=== PATIENT | female | born 1955 | race Two or more races ===

== ENCOUNTER 2019-04-27 08:51 | Observation (INO) ==
[2019-04-27 10:07] LABS: Basophils % 0.5 % (0.0-0.8); Eosinophils # 0.3 10*3/uL (0.0-0.87); Eosinophils % 3.4 % (0.00-10.9); Hematocrit 41.4 VOL% (35.7-47.0); Hemoglobin 13.3 GM/DL (12.0-16.0); Immature Granulocytes % 0.4 %; Immature Granulocytes Absolute 0.03 #; Lymphocytes # 1.7 10*3/uL (1.4-4.0); Lymphocytes % 21.8 % (21.3-54.2); Mean Corpuscular HGB Conc 32.1 GM/DL (32-36); Mean Corpuscular Volume 82.8 FL (87-102); Mean Platelet Volume 10.1 FL (9.6-12.0); Neutrophils % 67.9 % (38.7-73.9); Platelet Count 206 T/CUMM (130-400); Red Cell Distribution Width 16.5 % (9.3-17.3); White Blood Count 7.9 T/CUMM (4-12)
[2019-04-27 10:19] LABS: Apearance,Urine CLEAR (Clear); Bilirubin,Urine Negative (Negative); Glucose,Urine (UA) 3+ mg/dL (Negative); Ketones,Urine Negative (Negative); Nitrite,Urine Negative (Negative); Protein,Urine Negative; Urine Color Straw (Yellow); Urine Specific Gravity 1.015 (1.001-1.035)
[2019-04-27 10:20] LABS: Blood, Urine Large mg/dL (Negative); Urine Urobilinogen 0.2 EU/DL (0.2-1.0)
[2019-04-27 10:26] LABS: Bacteria,Urine Rare /HPF (Few); Squamous Epithelial Cell,Urine Few /HPF (0-10); WBC,Urine 0-2 /HPF (0-6)
[2019-04-27 10:27] LABS: Mucus,Urine Few /LPF (Occasional)
[2019-04-27 10:30] LABS: INR 4.6
[2019-04-27 10:32] LABS: Albumin 3.1 G/DL (3.4-5.0); Bilirubin,Total 0.7 MG/DL (0.2-1.0); Calcium 8.9 MG/DL (8.5-10.1); Osmolality,Calculated 282.2 MOS/KG (273-304); Total Protein 7.2 G/DL (6.4-8.3)
[2019-04-27 10:38] LABS: Barbiturates Screen,Urine Negative (Negative); Benzodiazepines Screen,Urine Positive (Negative); Cannabinoid Screen,Urine Positive (Negative); Opiate Screen,Urine Negative (Negative); Phencyclidine Screen,Urine Negative (Negative)
[2019-04-27] MEDS ORDERED: ONDANSETRON 4 MG/2 ML VIAL IV PRN (12:03)
[2019-04-27] MEDS ORDERED: ACETAMINOPHEN 325 MG TABLET PO PRN (12:03)
[2019-04-27] MEDS ORDERED: GLUCAGON 1 MG VIAL IM PRN (13:44)
[2019-04-27] MEDS ORDERED: DEXTROSE 10% 250 ML BAG IV PRN (13:44)
[2019-04-27] MEDS ORDERED: ALPRAZolam 0.5 MG TABLET PO PRN (14:01)
[2019-04-27] MEDS: ASPIRIN EC 81 MG TABLET PO SCH ×2 (16:10→16:44)
[2019-04-27 16:11] LABS: Hematocrit 40.5 VOL% (35.7-47.0); Hemoglobin 13.2 GM/DL (12.0-16.0)
[2019-04-27] MEDS: INSULIN REGULAR 100 UNIT/ML SUBCUT SCH ×2 (16:11→21:05)
[2019-04-27] MEDS ORDERED: ZALEPLON 5 MG CAPSULE PO SCH (21:00)
[2019-04-27] MEDS ORDERED: amLODIPine 10 MG TABLET PO SCH (21:00)
[2019-04-27] MEDS ORDERED: INSULIN GLARGINE 100 UNIT/ML SUBCUT SCH (21:00)
[2019-04-27] MEDS ORDERED: ATORVASTATIN 40 MG TABLET PO SCH (21:00)
[2019-04-27] MEDS: FLECAINIDE 100 MG TABLET PO SCH (21:04)
[2019-04-27] MEDS: METOPROLOL TARTRATE 50 MG TABLET PO SCH (21:04)
[2019-04-27] MEDS: TICAGRELOR 90 MG TABLET PO SCH (21:04)
[2019-04-27 21:47] LABS: Hematocrit 37.5 VOL% (35.7-47.0); Hemoglobin 12.6 GM/DL (12.0-16.0)
[2019-04-28 05:26] LABS: Basophils % 0.4 % (0.0-0.8); Eosinophils # 0.3 10*3/uL (0.0-0.87); Eosinophils % 3.9 % (0.00-10.9); Hematocrit 39.5 VOL% (35.7-47.0); Hemoglobin 13.2 GM/DL (12.0-16.0); Immature Granulocytes % 0.3 %; Immature Granulocytes Absolute 0.02 #; Lymphocytes # 2.5 10*3/uL (1.4-4.0); Mean Corpuscular HGB Conc 33.4 GM/DL (32-36); Mean Corpuscular Volume 81.1 FL (87-102); Mean Platelet Volume 10.9 FL (9.6-12.0); Monocytes % 5.9 % (1.7-12.7); Neutrophils % 56.5 % (38.7-73.9); Platelet Count 218 T/CUMM (130-400); Red Blood Count 4.87 MC/CUMM (3.8-5.5); Red Cell Distribution Width 16.6 % (9.3-17.3); White Blood Count 7.7 T/CUMM (4-12)
[2019-04-28 05:27] LABS: Hemoglobin 13.3 GM/DL (12.0-16.0)
[2019-04-28 05:39] LABS: INR 2.4
[2019-04-28 05:50] LABS: Calcium 9.2 MG/DL (8.5-10.1); Osmolality,Calculated 278.7 MOS/KG (273-304)
[2019-04-28 06:08] LABS: PT Patient Result 25.7 SECS (9.6-12.2)
[2019-04-28 08:50] VITALS: BP 143/74
[2019-04-28] MEDS ORDERED: sitaGLIPtin 100 MG TABLET PO SCH (09:00)
[2019-04-28] MEDS ORDERED: hydroCHLOROthiazide 12.5 MG CAPSULE PO PRN (09:00)
[2019-04-28] MEDS ORDERED: PANTOPRAZOLE 40 MG TABLET PO SCH (09:00)
[2019-04-28] MEDS: TICAGRELOR 90 MG TABLET PO SCH (09:54)
[2019-04-28] MEDS: FLECAINIDE 100 MG TABLET PO SCH (09:54)
[2019-04-28] MEDS: INSULIN REGULAR 100 UNIT/ML SUBCUT SCH (09:54)
[2019-04-28] MEDS: METOPROLOL TARTRATE 50 MG TABLET PO SCH (09:54)
[2019-04-28] MEDS ORDERED: WARFARIN 2.5 MG TABLET PO SCH (18:00)
== END 2019-04-28 11:15 | disposition home or self-care (01) ==
LOC: N.ED 08:51 → N.EDINP 08:51 → SUATTDRO 12:03 → N.EDINP 13:40 → N.2E 13:45
PROVIDERS: ADMIT Internal Medicine; ATTEND Internal Medicine Cardiovascular Disease

== ENCOUNTER 2020-04-23 20:23 | Inpatient (IN) ==
[2020-04-23] MEDS ORDERED: ALUM/MAG/SIMETH/LIDO VISC 1:1 30 ML BOTTLE PO STA (20:46)
[2020-04-23] MEDS ORDERED: ONDANSETRON 4 MG/2 ML VIAL IV STA (20:46)
[2020-04-23] MEDS ORDERED: HYDROmorphone 2 MG/1 ML VIAL IV STA (20:46)
[2020-04-23] MEDS ORDERED: PANTOPRAZOLE 40 MG VIAL IV STA (20:46)
[2020-04-23 21:05] LABS: Basophils % 0.4 % (0.0-0.8); Eosinophils # 0.1 10*3/uL (0.0-0.87); Hematocrit 48.8 VOL% (35.7-47.0); Immature Granulocytes % 0.4 %; Immature Granulocytes Absolute 0.03 #; Lymphocytes % 24.8 % (21.3-54.2); Mean Corpuscular HGB Conc 32.8 GM/DL (32-36); Mean Corpuscular Volume 81.9 FL (87-102); Mean Platelet Volume 10.3 FL (9.6-12.0); Monocytes % 6.1 % (1.7-12.7); Neutrophils % 67.3 % (38.7-73.9); Platelet Count 231 T/CUMM (130-400); Red Blood Count 5.96 MC/CUMM (3.8-5.5); Red Cell Distribution Width 17.6 % (9.3-17.3); White Blood Count 8.1 T/CUMM (4-12)
[2020-04-23 21:23] LABS: Bilirubin,Urine Negative (Negative); Blood, Urine Moderate mg/dL (Negative); Glucose,Urine (UA) >=500 mg/dL (Negative); Ketones,Urine Negative (Negative); Nitrite,Urine Negative (Negative); Protein,Urine Negative; RBC,Urine 13 /HPF (0-4); Squamous Epithelial Cell,Urine Occasional /HPF (0-10); Urine Appearance CLEAR (Clear); Urine Color Straw (Yellow); Urine Specific Gravity 1.027 (1.001-1.035); Urine Urobilinogen < 2.0 EU/DL (0.2-1.0); WBC,Urine 2 /HPF (0-6)
[2020-04-23] MEDS ORDERED: SODIUM CHLORIDE 0.9% 1,000 ML IV STA (21:28)
[2020-04-23 21:34] LABS: Alanine Aminotransferase 15 U/L (13-56); Albumin 3.1 G/DL (3.4-5.0); Alkaline Phosphatase 154 U/L (45-117); Amylase 57 U/L (25-115); Aspartate Amino Transferase 10 U/L (0-37); Blood Urea Nitrogen 7 MG/DL (7-18); Calcium 8.9 MG/DL (8.5-10.1); Carbon Dioxide 24 MMOL/L (21-32); Estimated Glom Filtration Rate 63 ML/MIN; Glucose 494 MG/DL (74-106); Osmolality,Calculated 285.4 MOS/KG (273-304); Sodium 133 MMOL/L (136-145); Total Protein 7.6 G/DL (6.4-8.3)
[2020-04-23] MEDS ORDERED: INSULIN REGULAR 100 UNIT/ML SUBCUT STA (21:42)
[2020-04-23] MEDS ORDERED: DEXTROSE 50% 25 GM/50 ML VIAL IV PRN ×2 (22:28→22:29)
[2020-04-23] MEDS ORDERED: GLUCAGON 1 MG VIAL IM PRN ×2 (22:28→22:29)
[2020-04-24] MEDS: SODIUM CHLORIDE 0.9% 1,000 ML IV SCH ×3 (01:30→18:26)
[2020-04-24] MEDS: INSULIN GLARGINE 100 UNIT/ML SUBCUT SCH ×2 (01:31→23:30)
[2020-04-24] MEDS: INSULIN REGULAR 100 UNIT/ML SUBCUT SCH ×4 (01:31→18:25)
[2020-04-24 03:17] LABS: Basophils % 0.1 % (0.0-0.8); Eosinophils # 0.1 10*3/uL (0.0-0.87); Eosinophils % 1.7 % (0.00-10.9); Hematocrit 44.1 VOL% (35.7-47.0); Hemoglobin 14.4 GM/DL (12.0-16.0); Immature Granulocytes % 0.3 %; Immature Granulocytes Absolute 0.02 #; Lymphocytes # 2.3 10*3/uL (1.4-4.0); Lymphocytes % 33.2 % (21.3-54.2); Mean Corpuscular HGB Conc 32.7 GM/DL (32-36); Monocytes % 6.3 % (1.7-12.7); Neutrophils % 58.4 % (38.7-73.9); Platelet Count 195 T/CUMM (130-400); Red Blood Count 5.38 MC/CUMM (3.8-5.5); Red Cell Distribution Width 16.7 % (9.3-17.3)
[2020-04-24 03:41] LABS: Calcium 8.4 MG/DL (8.5-10.1); Osmolality,Calculated 274.2 MOS/KG (273-304); Potassium 3.3 MMOL/L (3.5-5.1)
[2020-04-24 03:47] LABS: PT Patient Result 62.9 SECS (9.8-11.9)
[2020-04-24 03:57] LABS: INR 6.5
[2020-04-24] MEDS: HYDROmorphone 2 MG/1 ML VIAL IV PRN (05:48)
[2020-04-24] MEDS: ONDANSETRON 4 MG/2 ML VIAL IV PRN ×2 (05:49→11:21)
[2020-04-24] MEDS: METOPROLOL TARTRATE 50 MG TABLET PO SCH ×2 (08:47→22:46)
[2020-04-24] MEDS: NICOTINE 14 MG/24 HR PATCH TRANSDERM SCH (08:47)
[2020-04-24] MEDS: TICAGRELOR 90 MG TABLET PO SCH ×2 (08:47→22:44)
[2020-04-24] MEDS: FLECAINIDE 100 MG TABLET PO SCH ×2 (08:47→22:45)
[2020-04-24] MEDS ORDERED: PANTOPRAZOLE 40 MG VIAL IV SCH (09:00)
[2020-04-24] MEDS ORDERED: POTASSIUM CHLORIDE RIDER 10 MEQ in PREMIX 1 EACH IV PRN (09:43)
[2020-04-24] MEDS: POTASSIUM CHLORIDE 20 MEQ TABLET PO PRN ×2 (10:01→12:57)
[2020-04-24 10:27] LABS: Troponin I < 0.015 NG/ML (0.00-0.045)
[2020-04-24 10:28] LABS: Risk Ratio 2.79
[2020-04-24] MEDS: NYSTATIN CREAM 15 GM TUBE TOP SCH ×2 (16:05→22:00)
[2020-04-24] MEDS: FLUCONAZOLE 100 MG TABLET PO SCH (16:05)
[2020-04-24 16:24] LABS: INR 5.8; PT Patient Result 56.6 SECS (9.8-11.9)
[2020-04-24] MEDS ORDERED: WARFARIN 2.5 MG TABLET PO SCH (18:00)
[2020-04-24] MEDS: PANTOPRAZOLE 40 MG VIAL IV SCH (23:32)
[2020-04-25] MEDS: INSULIN REGULAR 100 UNIT/ML SUBCUT SCH ×4 (00:21→18:23)
[2020-04-25] MEDS: HYDROmorphone 2 MG/1 ML VIAL IV PRN (01:28)
[2020-04-25] MEDS: SODIUM CHLORIDE 0.9% 1,000 ML IV SCH ×3 (03:31→18:51)
[2020-04-25] MEDS: ONDANSETRON 4 MG/2 ML VIAL IV PRN (03:40)
[2020-04-25 05:51] LABS: Basophils % 0.3 % (0.0-0.8); Eosinophils # 0.2 10*3/uL (0.0-0.87); Eosinophils % 2.9 % (0.00-10.9); Hematocrit 41.7 VOL% (35.7-47.0); Hemoglobin 14.1 GM/DL (12.0-16.0); Immature Granulocytes % 0.1 %; Immature Granulocytes Absolute 0.01 #; Lymphocytes # 2.4 10*3/uL (1.4-4.0); Lymphocytes % 34.7 % (21.3-54.2); Mean Corpuscular HGB Conc 33.8 GM/DL (32-36); Mean Corpuscular Volume 80.3 FL (87-102); Mean Platelet Volume 10.9 FL (9.6-12.0); Monocytes % 7.3 % (1.7-12.7); Neutrophils % 54.7 % (38.7-73.9); Platelet Count 216 T/CUMM (130-400); Red Blood Count 5.19 MC/CUMM (3.8-5.5)
[2020-04-25 06:07] LABS: PT Patient Result 55.6 SECS (9.8-11.9)
[2020-04-25 06:10] LABS: Albumin 2.7 G/DL (3.4-5.0); Bilirubin,Total 1.7 MG/DL (0.2-1.0); Calcium 8.7 MG/DL (8.5-10.1); Osmolality,Calculated 277.1 MOS/KG (273-304); Potassium 3.7 MMOL/L (3.5-5.1); Total Protein 6.5 G/DL (6.4-8.9)
[2020-04-25 06:19] LABS: INR 5.7
[2020-04-25] MEDS: PANTOPRAZOLE 40 MG VIAL IV SCH ×2 (08:48→21:33)
[2020-04-25] MEDS: NICOTINE 14 MG/24 HR PATCH TRANSDERM SCH (10:14)
[2020-04-25] MEDS: METOPROLOL TARTRATE 50 MG TABLET PO SCH ×2 (10:14→21:28)
[2020-04-25] MEDS: FLUCONAZOLE 100 MG TABLET PO SCH (10:14)
[2020-04-25] MEDS: NYSTATIN CREAM 15 GM TUBE TOP SCH ×3 (10:14→21:30)
[2020-04-25] MEDS: TICAGRELOR 90 MG TABLET PO SCH ×2 (10:14→21:30)
[2020-04-25] MEDS: FLECAINIDE 100 MG TABLET PO SCH ×2 (10:15→22:33)
[2020-04-25] MEDS: INSULIN GLARGINE 100 UNIT/ML SUBCUT SCH (21:31)
[2020-04-26] MEDS: SODIUM CHLORIDE 0.9% 1,000 ML IV SCH ×3 (00:15→16:06)
[2020-04-26] MEDS: HYDROmorphone 2 MG/1 ML VIAL IV PRN (00:36)
[2020-04-26] MEDS: ONDANSETRON 4 MG/2 ML VIAL IV PRN (00:51)
[2020-04-26] MEDS: INSULIN REGULAR 100 UNIT/ML SUBCUT SCH ×5 (00:59→17:41)
[2020-04-26 06:10] LABS: Calcium 8.5 MG/DL (8.5-10.1); Osmolality,Calculated 274.4 MOS/KG (273-304)
[2020-04-26 06:14] LABS: Albumin 2.7 G/DL (3.4-5.0); Bilirubin,Direct 0.3 MG/DL (0.0-0.20); Bilirubin,Indirect 1.4 MG/DL (0.0-1.0); Bilirubin,Total 1.7 MG/DL (0.2-1.0); Total Protein 6.2 G/DL (5.0-7.5)
[2020-04-26 06:19] LABS: INR 3.9; PT Patient Result 38.8 SECS (9.8-11.9)
[2020-04-26] MEDS ORDERED: ESMOLOL 100 MG/10 ML VIAL IV ONE (09:03)
[2020-04-26] MEDS ORDERED: PHENYLEPHRINE 1 MG/10 ML SYRINGE IV ONE (09:09)
[2020-04-26] MEDS: FLECAINIDE 100 MG TABLET PO SCH ×2 (10:16→21:34)
[2020-04-26] MEDS: FLUCONAZOLE 100 MG TABLET PO SCH (10:16)
[2020-04-26] MEDS: PANTOPRAZOLE 40 MG VIAL IV SCH ×2 (10:17→21:38)
[2020-04-26] MEDS: NICOTINE 14 MG/24 HR PATCH TRANSDERM SCH (10:17)
[2020-04-26] MEDS: METOPROLOL TARTRATE 50 MG TABLET PO SCH ×2 (10:17→21:34)
[2020-04-26] MEDS: NYSTATIN CREAM 15 GM TUBE TOP SCH ×3 (10:17→22:00)
[2020-04-26] MEDS: TICAGRELOR 90 MG TABLET PO SCH ×2 (10:17→21:35)
[2020-04-26] MEDS ORDERED: ALUM/MAG/SIMETH/LIDO VISC 1:1 30 ML BOTTLE PO ONE (14:34)
[2020-04-26] MEDS ORDERED: ALUMINUM/MAGNES/SIMETH MAX STR 30 ML UDCUP PO PRN (14:34)
[2020-04-26] MEDS: INSULIN GLARGINE 100 UNIT/ML SUBCUT SCH (21:35)
[2020-04-26] MEDS ORDERED: KETOROLAC 15 MG/1 ML VIAL IV PRN (23:30)
[2020-04-27] MEDS: MOMETASONE 50 MCG NASAL SPRAY 17 GM BOTTLE BOTH NARES SCH ×3 (00:36→21:20)
[2020-04-27] MEDS: INSULIN REGULAR 100 UNIT/ML SUBCUT SCH ×4 (01:27→18:01)
[2020-04-27] MEDS: SODIUM CHLORIDE 0.9% 1,000 ML IV SCH ×2 (06:00→09:40)
[2020-04-27 08:17] LABS: INR 1.8; PT Patient Result 18.8 SECS (9.8-11.9)
[2020-04-27] MEDS: TICAGRELOR 90 MG TABLET PO SCH ×2 (09:37→20:50)
[2020-04-27] MEDS: METOPROLOL TARTRATE 50 MG TABLET PO SCH ×2 (09:37→20:50)
[2020-04-27] MEDS: FLECAINIDE 100 MG TABLET PO SCH ×2 (09:37→20:50)
[2020-04-27] MEDS: FLUCONAZOLE 100 MG TABLET PO SCH (09:37)
[2020-04-27] MEDS: PANTOPRAZOLE 40 MG VIAL IV SCH ×2 (09:38→20:52)
[2020-04-27] MEDS: NYSTATIN CREAM 15 GM TUBE TOP SCH ×3 (09:39→21:20)
[2020-04-27] MEDS: NICOTINE 14 MG/24 HR PATCH TRANSDERM SCH (09:40)
[2020-04-27] MEDS: ONDANSETRON 4 MG/2 ML VIAL IV PRN (10:05)
[2020-04-27] MEDS: CETIRIZINE 10 MG TABLET PO SCH (10:05)
[2020-04-27] MEDS ORDERED: WARFARIN 2.5 MG TABLET PO SCH (18:00)
[2020-04-27] MEDS: INSULIN GLARGINE 100 UNIT/ML SUBCUT SCH (20:51)
[2020-04-28] MEDS: INSULIN REGULAR 100 UNIT/ML SUBCUT SCH ×3 (01:43→12:37)
[2020-04-28 05:54] LABS: Basophils % 0.4 % (0.0-0.8); Eosinophils # 0.3 10*3/uL (0.0-0.87); Eosinophils % 4.8 % (0.00-10.9); Hematocrit 39.2 VOL% (35.7-47.0); Hemoglobin 13.4 GM/DL (12.0-16.0); Immature Granulocytes % 0.4 %; Immature Granulocytes Absolute 0.02 #; Lymphocytes # 2.1 10*3/uL (1.4-4.0); Lymphocytes % 38.1 % (21.3-54.2); Mean Corpuscular HGB Conc 34.2 GM/DL (32-36); Mean Corpuscular Volume 80.3 FL (87-102); Mean Platelet Volume 10.6 FL (9.6-12.0); Neutrophils % 47.3 % (38.7-73.9); Platelet Count 186 T/CUMM (130-400); Red Blood Count 4.88 MC/CUMM (3.8-5.5); Red Cell Distribution Width 17.2 % (9.3-17.3); White Blood Count 5.5 T/CUMM (4-12)
[2020-04-28 06:04] LABS: INR 1.2; PT Patient Result 13.1 SECS (9.8-11.9)
[2020-04-28 07:10] LABS: Calcium 8.3 MG/DL (8.5-10.1); Osmolality,Calculated 285.4 MOS/KG (273-304); Potassium 3.5 MMOL/L (3.5-5.1)
[2020-04-28] MEDS: FLUCONAZOLE 100 MG TABLET PO SCH (08:23)
[2020-04-28] MEDS: METOPROLOL TARTRATE 50 MG TABLET PO SCH (08:23)
[2020-04-28] MEDS: TICAGRELOR 90 MG TABLET PO SCH (08:23)
[2020-04-28] MEDS: CETIRIZINE 10 MG TABLET PO SCH (08:23)
[2020-04-28] MEDS: MOMETASONE 50 MCG NASAL SPRAY 17 GM BOTTLE BOTH NARES SCH (08:24)
[2020-04-28] MEDS: NYSTATIN CREAM 15 GM TUBE TOP SCH (08:24)
[2020-04-28] MEDS: FLECAINIDE 100 MG TABLET PO SCH (08:24)
[2020-04-28] MEDS: PANTOPRAZOLE 40 MG VIAL IV SCH (08:24)
[2020-04-28 12:11] VITALS: BP 132/90
== END 2020-04-28 13:51 | disposition home or self-care (01) | DRG 438 ==
LOC: N.ED 20:23 → SUATTDRO 22:24 → N.EDINP 22:24 → N.TELEN 23:47 → N.EDINP 23:47
PROVIDERS: ADMIT Internal Medicine; ATTEND Phlebology

== ENCOUNTER 2021-06-21 22:02 | Observation (INO) ==
[2021-06-21] MEDS ORDERED: ALUMINUM/MAGNES/SIMETH MAX STR 30 ML UDCUP PO STA (22:27)
[2021-06-21] MEDS ORDERED: ACETAMINOPHEN 500 MG TABLET PO STA (22:27)
[2021-06-21 22:54] LABS: Basophils % 0.4 % (0.0-0.8); Eosinophils # 0.3 10*3/uL (0.0-0.87); Eosinophils % 3.5 % (0.00-10.9); Hemoglobin 14.1 GM/DL (12.0-16.0); Immature Granulocytes % 0.4 %; Immature Granulocytes Absolute 0.03 #; Lymphocytes # 2.7 10*3/uL (1.4-4.0); Lymphocytes % 34.1 % (21.3-54.2); Mean Corpuscular HGB Conc 32.8 GM/DL (32-36); Mean Corpuscular Volume 82.4 FL (87-102); Monocytes # 0.4 10*3/uL (0.11-0.8); Monocytes % 5.5 % (1.7-12.7); Neutrophils % 56.1 % (38.7-73.9); Platelet Count 231 T/CUMM (130-400); Red Blood Count 5.22 MC/CUMM (3.8-5.5); Red Cell Distribution Width 15.9 % (9.3-17.3); White Blood Count 7.8 T/CUMM (4-12)
[2021-06-21 23:01] LABS: Granular Casts,Urine 11 /LPF (0-1); Hyaline Casts,Urine 168 /LPF (0-3); Mucus,Urine Occasional /LPF (Occasional); RBC,Urine 7 /HPF (0-4); Squamous Epithelial Cell,Urine Many /HPF (0-10)
[2021-06-21 23:02] LABS: Glucose,Urine (UA) 100 mg/dL (Negative); Protein,Urine 30 mg/dL (Negative); Urine Appearance Clear (Clear); Urine Color Yellow (Yellow); Urine Specific Gravity >= 1.030 (1.001-1.035); Urine pH 5.5 (4.5-8.0)
[2021-06-21 23:03] LABS: Bilirubin,Urine Small mg/dL (Negative); Blood, Urine Small mg/dL (Negative); Ketones,Urine 15 mg/dL (Negative); Nitrite,Urine Negative (Negative)
[2021-06-21 23:33] LABS: Bilirubin,Total 0.7 MG/DL (0.20-1.00); Calcium 9.1 MG/DL (8.5-10.1); Potassium 3.6 MMOL/L (3.5-5.1); Total Protein 6.8 G/DL (6.4-8.2)
[2021-06-21] MEDS ORDERED: SODIUM CHLORIDE 0.9% 500 ML IV STA (23:48)
[2021-06-22] MEDS ORDERED: MORPHINE 2 MG/1 ML SYRINGE IV STA (00:02)
[2021-06-22] MEDS ORDERED: DEXTROSE 10% 250 ML BAG IV PRN (01:44)
[2021-06-22] MEDS ORDERED: ACETAMINOPHEN 325 MG TABLET PO PRN (01:44)
[2021-06-22] MEDS ORDERED: hydrALAZINE 20 MG/1 ML VIAL IV PRN (01:44)
[2021-06-22] MEDS ORDERED: GLUCAGON 1 MG VIAL IM PRN (01:44)
[2021-06-22] MEDS: MORPHINE 2 MG/1 ML SYRINGE IV PRN ×4 (03:50→19:14)
[2021-06-22] MEDS: SODIUM CHLORIDE 0.9% 1,000 ML IV SCH ×4 (03:50→22:50)
[2021-06-22] MEDS: ONDANSETRON 4 MG/2 ML VIAL IV PRN ×4 (03:53→19:13)
[2021-06-22 04:41] LABS: Albumin 2.7 G/DL (3.4-5.0); Bilirubin,Total 0.6 MG/DL (0.20-1.00); Calcium 8.7 MG/DL (8.5-10.1); Osmolality,Calculated 292.3 MOS/KG (273-304); Potassium 3.3 MMOL/L (3.5-5.1); Risk Ratio 3.33; Total Protein 6.5 G/DL (6.4-8.2); VLDL Cholesterol 20.8 MG/DL
[2021-06-22] MEDS: INSULIN LISPRO 100 UNIT/ML SUBCUT SCH ×3 (05:24→17:36)
[2021-06-22] MEDS: PANTOPRAZOLE 40 MG VIAL IV SCH (08:19)
[2021-06-22] MEDS ORDERED: POTASSIUM CHLORIDE 20 MEQ TABLET PO ONE (15:00)
[2021-06-22] MEDS ORDERED: POTASSIUM CHLORIDE 20 MEQ TABLET PO PRN (15:30)
[2021-06-22] MEDS: METOPROLOL TARTRATE 25 MG TABLET PO SCH (20:54)
[2021-06-22] MEDS ORDERED: ENOXAPARIN 40 MG/0.4 ML SYRINGE SUBCUT SCH (21:00)
[2021-06-22] MEDS: diphenhydrAMINE CAP 25 MG CAPSULE PO PRN (23:25)
[2021-06-23] MEDS: INSULIN LISPRO 100 UNIT/ML SUBCUT SCH ×4 (00:24→19:33)
[2021-06-23] MEDS: ONDANSETRON 4 MG/2 ML VIAL IV PRN ×2 (03:42→12:00)
[2021-06-23] MEDS: SODIUM CHLORIDE 0.9% 1,000 ML IV SCH ×3 (05:52→19:45)
[2021-06-23 06:10] LABS: Basophils % 0.6 % (0.0-0.8); Eosinophils # 0.2 10*3/uL (0.0-0.87); Hematocrit 39.7 VOL% (35.7-47.0); Hemoglobin 12.9 GM/DL (12.0-16.0); Immature Granulocytes % 0.2 %; Immature Granulocytes Absolute 0.01 #; Lymphocytes # 2.2 10*3/uL (1.4-4.0); Lymphocytes % 32.7 % (21.3-54.2); Mean Corpuscular HGB Conc 32.5 GM/DL (32-36); Mean Corpuscular Volume 83.1 FL (87-102); Mean Platelet Volume 10.1 FL (9.6-12.0); Monocytes # 0.4 10*3/uL (0.11-0.8); Monocytes % 6.5 % (1.7-12.7); Platelet Count 189 T/CUMM (130-400); Red Blood Count 4.78 MC/CUMM (3.8-5.5); Red Cell Distribution Width 15.8 % (9.3-17.3); White Blood Count 6.6 T/CUMM (4-12)
[2021-06-23 06:24] LABS: Calcium 8.6 MG/DL (8.5-10.1); Osmolality,Calculated 281.4 MOS/KG (273-304); Potassium 3.8 MMOL/L (3.5-5.1)
[2021-06-23] MEDS: METOPROLOL TARTRATE 25 MG TABLET PO SCH ×2 (08:31→20:49)
[2021-06-23] MEDS: ESCITALOPRAM 10 MG TABLET PO SCH (08:31)
[2021-06-23] MEDS: amLODIPine 10 MG TABLET PO SCH (08:31)
[2021-06-23] MEDS: PANTOPRAZOLE 40 MG VIAL IV SCH (08:33)
[2021-06-23] MEDS: diphenhydrAMINE CAP 25 MG CAPSULE PO PRN ×2 (11:58→19:31)
[2021-06-23] MEDS: DOCUSATE SODIUM 100 MG CAPSULE PO SCH ×2 (12:00→20:50)
[2021-06-23] MEDS: PANTOPRAZOLE 40 MG TABLET PO SCH (19:46)
[2021-06-24] MEDS: INSULIN LISPRO 100 UNIT/ML SUBCUT SCH ×6 (00:34→23:51)
[2021-06-24] MEDS: SODIUM CHLORIDE 0.9% 1,000 ML IV SCH ×2 (02:22→21:25)
[2021-06-24] MEDS: diphenhydrAMINE CAP 25 MG CAPSULE PO PRN ×3 (02:23→23:53)
[2021-06-24] MEDS: ONDANSETRON 4 MG/2 ML VIAL IV PRN ×2 (02:25→07:29)
[2021-06-24 05:11] LABS: Basophils % 0.5 % (0.0-0.8); Eosinophils # 0.2 10*3/uL (0.0-0.87); Eosinophils % 3.3 % (0.00-10.9); Hematocrit 39.7 VOL% (35.7-47.0); Hemoglobin 12.9 GM/DL (12.0-16.0); Immature Granulocytes % 0.5 %; Immature Granulocytes Absolute 0.03 #; Lymphocytes % 33.1 % (21.3-54.2); Mean Corpuscular HGB Conc 32.5 GM/DL (32-36); Mean Corpuscular Volume 83.2 FL (87-102); Mean Platelet Volume 10.7 FL (9.6-12.0); Monocytes # 0.4 10*3/uL (0.11-0.8); Monocytes % 6.4 % (1.7-12.7); Neutrophils % 56.2 % (38.7-73.9); Platelet Count 195 T/CUMM (130-400); Red Blood Count 4.77 MC/CUMM (3.8-5.5); Red Cell Distribution Width 15.7 % (9.3-17.3); White Blood Count 6.1 T/CUMM (4-12)
[2021-06-24 05:31] LABS: Calcium 8.6 MG/DL (8.5-10.1); Osmolality,Calculated 276.7 MOS/KG (273-304); Potassium 3.7 MMOL/L (3.5-5.1)
[2021-06-24 05:35] LABS: Albumin 2.6 G/DL (3.4-5.0); Bilirubin,Direct 0.2 MG/DL (0.0-0.20); Bilirubin,Total 1.2 MG/DL (0.20-1.00); Total Protein 5.9 G/DL (6.4-8.2)
[2021-06-24] MEDS: PANTOPRAZOLE 40 MG TABLET PO SCH ×2 (07:52→18:29)
[2021-06-24] MEDS ORDERED: MAGNESIUM SULF RIDER 2 GM/50 ML PREMIX IV ONE (08:00)
[2021-06-24] MEDS: amLODIPine 10 MG TABLET PO SCH (08:38)
[2021-06-24] MEDS: DOCUSATE SODIUM 100 MG CAPSULE PO SCH ×2 (08:38→21:27)
[2021-06-24] MEDS: ESCITALOPRAM 10 MG TABLET PO SCH (08:39)
[2021-06-24] MEDS: METOPROLOL TARTRATE 25 MG TABLET PO SCH ×2 (08:39→21:27)
[2021-06-24] MEDS ORDERED: ONDANSETRON 4 MG/2 ML VIAL IV SCH (10:00)
[2021-06-24] MEDS ORDERED: traMADol 50 MG TABLET PO PRN (21:03)
[2021-06-25] MEDS: SODIUM CHLORIDE 0.9% 1,000 ML IV SCH ×3 (02:51→11:07)
[2021-06-25 05:51] LABS: Basophils % 0.5 % (0.0-0.8); Eosinophils # 0.2 10*3/uL (0.0-0.87); Eosinophils % 3.3 % (0.00-10.9); Hematocrit 40.7 VOL% (35.7-47.0); Hemoglobin 13.1 GM/DL (12.0-16.0); Immature Granulocytes % 0.3 %; Immature Granulocytes Absolute 0.02 #; Lymphocytes # 2.1 10*3/uL (1.4-4.0); Lymphocytes % 34.3 % (21.3-54.2); Mean Corpuscular HGB Conc 32.2 GM/DL (32-36); Mean Corpuscular Volume 82.6 FL (87-102); Mean Platelet Volume 10.5 FL (9.6-12.0); Monocytes # 0.5 10*3/uL (0.11-0.8); Monocytes % 7.8 % (1.7-12.7); Neutrophils % 53.8 % (38.7-73.9); Platelet Count 226 T/CUMM (130-400); Red Blood Count 4.93 MC/CUMM (3.8-5.5); Red Cell Distribution Width 15.9 % (9.3-17.3); White Blood Count 6.1 T/CUMM (4-12)
[2021-06-25 05:59] LABS: Calcium 8.9 MG/DL (8.5-10.1); Osmolality,Calculated 275.5 MOS/KG (273-304); Potassium 3.7 MMOL/L (3.5-5.1)
[2021-06-25] MEDS: INSULIN LISPRO 100 UNIT/ML SUBCUT SCH ×2 (06:30→11:10)
[2021-06-25] MEDS ORDERED: propofoL 200 MG/20 ML VIAL IV ONE (08:45)
[2021-06-25] MEDS ORDERED: LIDOCAINE 2% 5 ML VIAL ONE (08:45)
[2021-06-25] MEDS ORDERED: ONDANSETRON 4 MG/2 ML VIAL ONE (08:48)
[2021-06-25] MEDS ORDERED: ESMOLOL 100 MG/10 ML VIAL IV ONE (08:59)
[2021-06-25] MEDS ORDERED: PHENYLEPHRINE 1 MG/10 ML SYRINGE IV ONE (09:00)
[2021-06-25] MEDS ORDERED: METOCLOPRAMIDE 10 MG/2 ML VIAL IV SCH (09:30)
[2021-06-25] MEDS: DOCUSATE SODIUM 100 MG CAPSULE PO SCH (10:33)
[2021-06-25] MEDS: amLODIPine 10 MG TABLET PO SCH (10:33)
[2021-06-25] MEDS: ESCITALOPRAM 10 MG TABLET PO SCH (10:33)
[2021-06-25] MEDS: METOPROLOL TARTRATE 25 MG TABLET PO SCH (10:33)
[2021-06-25] MEDS: PANTOPRAZOLE 40 MG TABLET PO SCH (10:33)
[2021-06-25] MEDS ORDERED: METOCLOPRAMIDE 10 MG/10 ML UDCUP PO SCH (10:53)
[2021-06-25] MEDS ORDERED: PHENOL 1.4% THROAT SPRAY 177 ML BOTTLE PO PRN (13:53)
[2021-06-25 16:16] VITALS: BP 123/60
[2021-06-29] MEDS ORDERED: ERGOCALCIFEROL 50,000 UNIT CAPSULE PO SCH (09:00)
== END 2021-06-25 18:38 | disposition home or self-care (01) ==
LOC: N.ED 22:02 → INTOOBSV 06-22 01:44 → SUATTDRO 06-22 01:44 → N.EDINP 06-22 01:44 → N.3E 06-22 02:37
PROVIDERS: ADMIT Family Medicine; ATTEND Emergency Medicine

== ENCOUNTER 2021-10-28 17:43 | Observation (INO) ==
[2021-10-28] MEDS ORDERED: DILTIAZEM 25 MG/5 ML VIAL IV STA (18:10)
[2021-10-28 18:27] LABS: Basophils % 0.3 % (0.0-0.8); Eosinophils # 0.1 10*3/uL (0.0-0.87); Eosinophils % 1.8 % (0.00-10.9); Hemoglobin 14.3 GM/DL (12.0-16.0); Immature Granulocytes % 0.4 %; Immature Granulocytes Absolute 0.03 #; Lymphocytes # 2.2 10*3/uL (1.4-4.0); Lymphocytes % 31.1 % (21.3-54.2); Mean Corpuscular HGB Conc 33.3 GM/DL (32-36); Mean Corpuscular Volume 83.3 FL (87-102); Mean Platelet Volume 10.7 FL (9.6-12.0); Monocytes # 0.4 10*3/uL (0.11-0.8); Monocytes % 5.2 % (1.7-12.7); Neutrophils % 61.2 % (38.7-73.9); Platelet Count 222 T/CUMM (130-400); Red Blood Count 5.16 MC/CUMM (3.8-5.5); Red Cell Distribution Width 15.7 % (9.3-17.3); White Blood Count 7.1 T/CUMM (4-12)
[2021-10-28 18:39] LABS: INR 1.2; PT Patient Result 12.8 SECS (10.1-12.1)
[2021-10-28 18:47] LABS: Albumin 2.9 G/DL (3.4-5.0); Bilirubin,Total 0.9 MG/DL (0.20-1.00); Calcium 9.3 MG/DL (8.5-10.1); Osmolality,Calculated 284.1 MOS/KG (273-304); Potassium 4.5 MMOL/L (3.5-5.1)
[2021-10-28] MEDS ORDERED: ACETAMINOPHEN 325 MG TABLET PO PRN (19:39)
[2021-10-28] MEDS ORDERED: DEXTROSE 10% 250 ML BAG IV PRN ×2 (19:39→19:49)
[2021-10-28] MEDS ORDERED: ONDANSETRON 4 MG/2 ML VIAL IV PRN (19:39)
[2021-10-28] MEDS ORDERED: GLUCAGON 1 MG VIAL IM PRN ×2 (19:39→19:49)
[2021-10-28] MEDS ORDERED: LACTATED RINGERS 1,000 ML IV SCH ×2 (20:00)
[2021-10-28] MEDS ORDERED: METOPROLOL TARTRATE 25 MG TABLET PO SCH (21:00)
[2021-10-28] MEDS ORDERED: INSULIN GLARGINE 100 UNIT/ML SUBCUT SCH (21:00)
[2021-10-28] MEDS ORDERED: ATORVASTATIN 40 MG TABLET PO SCH (21:00)
[2021-10-28] MEDS: INSULIN REGULAR 100 UNIT/ML SUBCUT SCH (21:36)
[2021-10-28] MEDS: INSULIN LISPRO 100 UNIT/ML SUBCUT SCH (21:49)
[2021-10-28] MEDS: FLECAINIDE 100 MG TABLET PO SCH (23:42)
[2021-10-29 01:06] LABS: Basophils % 0.5 % (0.0-0.8); Eosinophils # 0.2 10*3/uL (0.0-0.87); Hematocrit 39.7 VOL% (35.7-47.0); Hemoglobin 13.2 GM/DL (12.0-16.0); Immature Granulocytes % 0.4 %; Immature Granulocytes Absolute 0.03 #; Lymphocytes # 2.8 10*3/uL (1.4-4.0); Lymphocytes % 37.7 % (21.3-54.2); Mean Corpuscular HGB Conc 33.2 GM/DL (32-36); Mean Corpuscular Volume 83.8 FL (87-102); Mean Platelet Volume 10.2 FL (9.6-12.0); Monocytes # 0.5 10*3/uL (0.11-0.8); Neutrophils % 53.4 % (38.7-73.9); Platelet Count 191 T/CUMM (130-400); Red Blood Count 4.74 MC/CUMM (3.8-5.5); Red Cell Distribution Width 15.7 % (9.3-17.3); White Blood Count 7.5 T/CUMM (4-12)
[2021-10-29 01:20] LABS: Calcium 9.1 MG/DL (8.5-10.1); Osmolality,Calculated 283.7 MOS/KG (273-304); Potassium 3.9 MMOL/L (3.5-5.1)
[2021-10-29] MEDS ORDERED: METOPROLOL TARTRATE 50 MG TABLET PO ONE (08:18)
[2021-10-29] MEDS ORDERED: ESCITALOPRAM 10 MG TABLET PO SCH (09:00)
[2021-10-29] MEDS ORDERED: PANTOPRAZOLE 40 MG TABLET PO SCH (09:00)
[2021-10-29] MEDS ORDERED: RIVAROXABAN 15 MG TABLET PO SCH (09:00)
[2021-10-29] MEDS: INSULIN REGULAR 100 UNIT/ML SUBCUT SCH ×2 (09:01→11:38)
[2021-10-29] MEDS: INSULIN LISPRO 100 UNIT/ML SUBCUT SCH (09:01)
[2021-10-29] MEDS: FLECAINIDE 100 MG TABLET PO SCH (09:02)
[2021-10-29] MEDS: GABAPENTIN 300 MG CAPSULE PO PRN ×2 (11:38)
[2021-10-29 12:09] VITALS: BP 115/80
[2021-10-29] MEDS ORDERED: METOPROLOL TARTRATE 50 MG TABLET PO SCH (21:00)
== END 2021-10-29 15:28 | disposition home or self-care (01) ==
LOC: N.ED 17:43 → N.EDINP 17:43 → N.TELES 22:20
PROVIDERS: ADMIT Emergency Medicine; ATTEND Emergency Medicine